=== PATIENT | male | born 2000 | race Hispanic/Latino ===

== ENCOUNTER 2021-07-11 22:20 | Emergency (ER) | payer OTHER, SELFPAY ==
--- NOTE | ~2021-07-11 | XR_ITS ---
EXAMINATION: XR ankle LT min 3V EXAM DATE: 07/11/2021 22:41 INDICATION: Pain/ edema after twisting left ankle tonight. TECHNIQUE: Left ankle frontal, lateral and oblique projections obtained and reviewed. There is no pr ior study for comparison. FINDINGS: The left ankle mortise appears intact. There are no acute fractures or dislocations ident ified. There is no subcutaneous gas. There is soft tissue swelling anterolaterally. There are no r adiopaque foreign bodies. IMPRESSION: 1. Left ankle exam without acute osseous findings. 2. Soft tissue swelling. Reviewed, dictated and finalized at location A. [employer]
[2021-07-11 22:26] VITALS: BP 135/74; PULSE 65; RESP 16; TEMP 36.2; O2SAT 100
--- NOTE | 2021-07-12 00:30 | ED.GENADULT ---
HPI - General Adult General Chief complaint: Extremity Injury, Lower Stated complaint: Left ankle pain Time Seen by Provider: 07/12/21 00:04 History of Present Illness HPI narrative: Patient 20-year-old gentleman who presents the emergency department with chief complaint of left ankle pain. Patient reports he was playing volleyball came down from jumping landed on a another player and twisted his left ankle. The patient reports that he has pain medial and lateral malleolus reports that it hurts whenever he tries to walk on it reports not improved by anything. Patient denies any other injuries reports he had a prior injury to that foot before in the past where he had a toe fracture patient states he has limited mobility at the left great toe. Patient denies head injury denies neck pain or other trauma. Related Data Home Medications Medication Instructions Recorded Confirmed No Home Medications 07/11/21 07/11/21 Allergies Allergy/AdvReac Type Severity Reaction Status Date / Time No Known Allergies Allergy Verified 07/11/21 22:25 Review of Systems Review of Systems: A 10 system review of systems was completed on the patient and is negative except for what is stated in the HPI. Nursing and ancillary documentation was reviewed. Exam Narrative: GENERAL: Well-appearing, well-nourished, and in no acute distress. HEAD: Normocephalic, atraumatic. EYES: PERRLA and EOMI. ENT: Nares clear, no rhinorrhea or epistaxis. Mucous membranes moist. NECK: Supple. CHEST: Clear to auscultation. No respiratory distress. HEART: Regular rate and rhythm. No murmur heard. Normal peripheral pulses. ABDOMEN: Soft, nontender, nondistended, normal active bowel sounds. EXTREMITIES: Normal range of motion. No edema. Tenderness to palpation of the medial lateral malleolus of the left ankle SKIN: Warm, dry, no rash. NEURO: No focal deficits. Alert and oriented x3. PSYCH: Normal mood and affect. Course Course Emergency Course: Plain film x-rays of left ankle showed no evidence of fracture Vital Signs Vital signs: Vital Signs Temperature 36.2 C L 07/11/21 22:26 Pulse Rate 65 07/11/21 22:26 Respiratory Rate 16 07/11/21 22:26 Blood Pressure 135/74 07/11/21 22:26 Pulse Oximetry 100 07/11/21 22:26 Temperature 36.2 C L 07/11/21 22:26 Pulse Rate 65 07/11/21 22:26 Respiratory Rate 16 07/11/21 22:26 Blood Pressure 135/74 07/11/21 22:26 Pulse Oximetry 100 07/11/21 22:26 Medical Decision Making Vital Signs Vital Signs: Vital Signs Temperature 36.2 C L 07/11/21 22:26 Pulse Rate 65 07/11/21 22:26 Respiratory Rate 16 07/11/21 22:26 Blood Pressure 135/74 07/11/21 22:26 Pulse Oximetry 100 07/11/21 22:26 Temperature 36.2 C L 07/11/21 22:26 Pulse Rate 65 07/11/21 22:26 Respiratory Rate 16 07/11/21 22:26 Blood Pressure 135/74 07/11/21 22:26 Pulse Oximetry 100 07/11/21 22:26 Discharge Plan Discharge Clinical Impression: Ankle sprain and strain Patient Disposition: Home, Self-Care Condition: Stable Instructions: Antibiotic Form, Ankle Sprain (ED), Crutch Instructions (ED) Prescriptions: No Action No Home Medications RF: 0 Follow-up/Referrals: PHYSICIAN NOT ON STAFF,NONSTAFF [Primary Care Provider] - Lorenzo Guaman MD [Physician] - Time of Disposition: 00:33
[2021-07-12 01:01] VITALS: RESP 14
== END 2021-07-12 01:03 | disposition home or self-care (01) ==
LOC: ANHED 07-12 01:01
PROVIDERS: Emergency Provider Emergency Medicine
DX: S93.402A Sprain of unspecified ligament of left ankle, initial encounter (principal); S96.912A Strain of unspecified muscle and tendon at ankle and foot level, left foot, initial encounter; X50.1XXA Overexertion from prolonged static or awkward postures, initial encounter; Y93.68 Activity, volleyball (beach) (court)
CPT/HCPCS: 73610; 99283

== ENCOUNTER 2023-12-19 09:02 | Emergency (ER) | payer SELFPAY ==
--- NOTE | ~2023-12-19 | XR_ITS ---
XR elbow RT min 3V 12/19/2023 09:19 INDICATION: Right elbow pain PROCEDURE: 4 views right elbow COMPARISON: No prior studies for comparison. FINDINGS: Fracture, dislocation or subluxation is not identified. The soft tissues appear within norm al limits. No foreign bodies are identified. IMPRESSION: 1: NO ACUTE BONE OR JOINT ABNORMALITY IDENTIFIED. Reviewed, dictated and finalized at location A.
[2023-12-19] MEDS: predniSONE 20 MG TABLET 40 MG PO (09:21)
--- NOTE | 2023-12-19 10:26 | ED.UPPEXIN ---
HPI - Extremity Injury (Upper) General Chief Complaint: Extremity Injury, Upper Stated Complaint: right elbow injury Time Seen by Provider: 12/19/23 09:06 History of Present Illness HPI narrative: Patient plays soccer and on Thursday he noticed some pain to his right elbow, worse with flexion, denies any injuries to the elbow, no focal numbness or weakness. Related Data Allergies Allergy/AdvReac Type Severity Reaction Status Date / Time No Known Allergies Allergy Verified 12/19/23 09:22 Review of Systems Review of Systems: All systems reviewed & are unremarkable except as noted in HPI and below Exam Narrative: EXAMINATION OF ORGAN SYSTEMS/BODY AREAS: Constitutional: Vital signs per nursing GENERAL:[No acute distress, non-toxic appearing.] HEAD: Normal with no signs of head trauma. EYES: EOMI, conjunctiva normal ENT: Hearing grossly intact LUNGS: Nonlabored breathing. HEART: [Regular rate and rhythm], normal radial pulse ABD: No distension EXT: Normal extension, some pain with flexion past 90 degrees. No significant tenderness to palpation, the significant swelling. SKIN: Tiny superficial abrasion over right elbow NEURO: [Alert and oriented x 3. No gross focal sensory or strength deficits.] PSYCH: Normal affect MDM - Extremity Injury (Upper) MDM Narrative Medical decision making narrative: 23-year-old male presenting with atraumatic right elbow pain, denies overuse or recent injuries, he is neurovascularly intact, exam quite benign without any swelling or deformity, I made low flex and extend without significant tenderness, the patient does have pain with flexion left 90?, x-ray obtained on my own independent interpretation no obvious deformity or fractures, he is reassured and I will trial some steroids in case the tendinitis or arthritis, he is already taking ibuprofen he is encouraged to continue this, follow-up with orthopedics. Stable for discharge at this time. Discharge Plan Discharge Clinical Impression: Elbow pain, right Patient Disposition: Home, Self-Care Condition: Stable Instructions: Antibiotic Form, Elbow Sprain (ED) Additional Instructions: Please follow up with orthopedics; you can always return to the ER for any further issues. Prescriptions: New prednisone 20 mg tablet 40 mg PO DAILY 4 Days Qty: 8 0RF Follow-up/Referrals: PHYSICIAN NOT ON STAFF,NONSTAFF [Primary Care Provider] - Akira Das MD [Physician] - 2 Days
== END 2023-12-19 10:01 | disposition home or self-care (01) ==
LOC: ANHED 09:51
PROVIDERS: Emergency Provider Emergency Medicine
DX: M25.521 Pain in right elbow (principal)
CPT/HCPCS: 73080; 99283; J7512